=== PATIENT | female | born 1950 | race Caucasian/White ===

== ENCOUNTER 2023-03-09 12:12 | Outpatient (OUT) | payer MEDICARE, SELFPAY ==
--- NOTE | 2023-03-09 13:25 | CA_ITS ---
[facility] Test Date: 2023-03-09 Pat Name: CHERISE PAL Department: Room: - Gender: Female Clinical Practitioner: : 1950 Requested By: CHELSEA MORSE Order Number: [id number] Reading MD: MANDY REID Interpretive Statements Biphasic doppler waveforms PVR waveforms with normal upstroke, amplitude and dicrotic notch Impression: - normal arterial evaluation of the lower extremities without hemodynamic impairment of the B/L lower extremities at rest (right REBEKAH 1.13, left REBEKAH 1.11) - abnormal response to excercise in the RLE, clinical correlation advised Electronically Signed On 03-09-2023 20:05:40 EST by MANDY REID
== END 2023-03-09 12:13 | disposition home or self-care (01) ==
LOC: CARD 12:15
PROVIDERS: PCP Family Medicine; Visit Provider Family Medicine
DX: I73.9 Peripheral vascular disease, unspecified (principal)
CPT/HCPCS: 93924

== ENCOUNTER 2023-08-26 07:19 | Outpatient (OUT) | payer MEDICARE, SELFPAY ==
--- NOTE | 2023-08-26 07:00 | CA_ITS ---
Patient Name: CHERISE PAL MR#: [id number] : 1950 Exam Date: 08/26/2023 Ordering Doctor: DR CHELSEA MORSE M.D. ECHOCARDIOGRAM REPORT PROCEDURE: CA ECHO DOPPLER COMPLETE INDICATIONS: Pre op, Abnormal EKG COMPARISON: None. DESCRIPTION: COMPLETE ECHOCARDIOGRAM Real-time transthoracic echocardiography with 2D, M-mode, spectral and color flow Doppler performed. QUALITY: Technical quality was good. LEFT VENTRICLE: Normal chamber size. Borderline left ventricular hypertrophy. Global left ventricular systolic function is normal. LV EF: Visual estimation of left ventricular ejection fraction is 65-70% DIASTOLIC: Normal diastolic function. ATRIAL SEPTUM: LEFT ATRIUM: Normal chamber size. RIGHT ATRIUM: Normal chamber size. RIGHT VENTRICLE: Normal chamber size. Normal right ventricular systolic function. TRICUSPID VALVE: Normal mobility and thickness. No stenosis with mild regurgitation. No evidence of pulmonary hypertension. RVSP 29 mmHg. MITRAL VALVE: Normal mobility and thickness. No evidence of mitral valve stenosis. There is no mitral annular calcification. Trivial mitral regurgitation. AORTIC VALVE: Normal trileaflet appearance. No visible sclerosis. Normal leaflet mobility. No evidence of aortic valve stenosis. No aortic regurgitation. AORTIC ROOT: Normal diameter and appearance. Mildly dilated ascending aorta measuring 3.7 cm. PULMONIC VALVE: Normal thickness and mobility. No stenosis. Trivial regurgitation. PERICARDIUM: No evidence of pericardial effusion. IVC: Collapses with inspirations. Normal size. PLEURA: CONCLUSION: 1. Normal left ventricular size and systolic function. LVEF is 65 to 70%. 2. Normal right ventricular size and systolic function. 3. No significant valvular dysfunction. 4. Normal right-sided pressures. 5. Mildly dilated ascending aorta. Adult Echocardiography Procedure Report Left Ventricle LVEDD (3.7 - 5.6 cm): 4.32 cm LVESD (2.2 - 4.0 cm): 3.11 cm LVIVS thickness (0.6 - 1.2 cm): 1.13 cm LVPW thickness (0.5 - 1.0 cm): 0.90 cm e': 0.09 m/s E - e': 7.20 LVOT Max Gradient: 1.89 mm[Hg] LVOT Area (cm2): 0.69 m/s Peak Velocity (LVOT): 0.69 m/s Mean Velocity (LVOT): 0.54 m/s LVOT Diameter 2.20 cm Left Ventricular Ejection Fraction: 65-70 % Left Atrium LA Volume Index (2D A2C): 18.50 ml/m2 Left Atrium Systolic Dimension: 2.49 cm Mitral Valve MV E to A Ratio: 0.96 Mitral Valve A-Wave Peak Velocity: 0.69 m/s Mitral Valve E-Wave Peak Velocity: 0.66 m/s Right Ventricle RV Internal Diastolic Dimension: 3.24 cm Aorta AO Root Diam: 3.19 cm Ascending Ao Diam: 3.65 cm Aortic Valve AoV Area (Peak Eliud): 2.24 cm2, 2.24 cm2 AoV Area (VTI): 2.49 cm2, 2.49 cm2 Peak Velocity(Antegrade Flow): 1.16 m/s Peak Gradient(Antegrade Flow): 5.42 mm[Hg] Mean Velocity(Antegrade Flow): 0.79 m/s Mean Gradient(Antegrade Flow): 2.89 mm[Hg] Velocity Time Integral: 26.81 cm Tricuspid Valve Peak Velocity (Regurgitant Flow): 2.17 m/s, 2.20 m/s, 2.55 m/s Pulmonic Valve Mean Gradient: 2.01 mm[Hg], 1.80 mm[Hg] Mean Velocity: 0.67 m/s, 0.62 m/s Peak Velocity: 0.95 m/s Peak Gradient: 3.47 mm[Hg], 3.81 mm[Hg] Right Atrium Right Atrium Systolic Pressure: 45.43 ml, 45.43 ml Dictated by: Shahzad Medina M.D. on 08/26/2023 at 19:50 Approved by: Shahzad Medina M.D. on 08/26/2023 at 19:53
--- OUTSIDE RECORDS SUMMARY | 2023-08-26 07:21 | XMS_ITS | CCD ---
Author Organization [facility] Care Team Providers Care Director Visual Name Role Phone LITO, DR TRAN Primary Care Unavailable SHAIKH Gerald TITUS Admitting Unavailable SHAIKH Gerald TITUS Attending Unavailable ERWIN ., DR WILIAN Guallpa Consulting Unavailable JOHN AGUILAR Consulting Unavailable YELENA STYLES Consulting Unavailable SHAIKH Gerald TITUS Consulting Unavailable LITO, DR TRAN Admitting Unavailable LITO, DR TRAN Attending Unavailable LITO, DR TRAN Primary Care Unavailable LITO, DR TRAN Consulting Unavailable LITO, DR TRAN Admitting Unavailable LITO, DR TRAN Attending Unavailable LITO, DR TRAN Primary Care Unavailable LITO, DR TRAN Consulting Unavailable MD Lynda Morse Primary Care Provider MD Suman Sosa Attending Provider [phone] Suman Sosa Attending Unavailable Suman Sosa Admitting Unavailable Lynda Morse Primary Care Unavailable Lynda Morse MD Primary Care Provider [phone] LYNDA MORSE Primary Care Unavailable Krysta Oviedo Attending Unavail able Krysta Oviedo Admitting Unavail able Krysta Oviedo Attending Unavail able Krysta Oviedo Admitting Unavail able LYNDA MORSE Primary Care Unavailable LYNDA MORSE Attending Unavailable LYNDA MORSE Attending Unavailable LYNDA MORSE Attending Unavailable GHAZAL GALINDO Attending Unavailable GHAZAL GALINDO Referring Unavailable KRYSTA OVIEDO Attending Unavailable KRYSTA OVIEDO Attending Unavailable LYNDA MORSE Attending Unavailable LYNDA MORSE Attending Unavailable Allergies Allergy Classification Reported Allergen(s) Allergy Type Date of Onset Reaction(s) Facility (2 sources) Penicillins Drug allergy (disorder) 06-15-[address] [facility] Repository (1 source) Penicillins Drug allergy (disorder) 09-04-2022 [facility] Repository (3 sources) Penicillins Drug Allergy 10-13-2022 [facility] (1 source) Penicillin; Translations: [penicillin] Drug Allergy [facility] Repository Medications Current Medications Medication Drug Class(es) Dates Sig (Normalized) Sig (Original) Blood Glucose Monitoring Suppl (ONE TOUCH ULTRA 2) w/Device kit (3 sources) Start: 04-15-2022 Blood Glucose Monitoring Suppl (ONE TOUCH ULTRA 2) w/Device kit USE DIRECTED 0 04/15/2022 Active cilostazol 100 mg oral tablet (3 sources) Phosphodiesterase 3 Inhibitor Start: 03-10-2023 End: 03-09-2024 take 1 tablet by mouth in the morning cilostazol (Pletal) 100 MG tablet Indications: Intermittent claudication (CMS/HCC) Take 1 tablet (100 mg) by mouth in the morning. 90 tablet 3 03/10/2023 03/09/2024 Active citalopram 40 mg oral tablet (3 sources) Serotonin Reuptake Inhibitor Start: 01-14-2023 take 1 tablet by mouth once daily citalopram (CeleXA) 40 MG tablet TAKE 1 TABLET BY MOUTH EVERY DAY FOR 100 DAYS 0 01/14/2023 Active fluticasone propionate 0.05 mg/actuat metered dose nasal spray (3 sources) Corticosteroid Start: 02-19-2023 take 2 spray(s) nasal route once daily fluticasone (Flonase) 50 MCG/ACT nasal spray Indications: Seasonal allergies USE 2 SPRAYS IN EACH NOSTRIL ONCE EVERYDAY 48 mL 3 02/19/2023 Active Fluticasone-Umeclid in-Vilant (Trelegy Ellipta) 200-62.5-25 MCG/ACT aerosol powder (3 sources) Start: 04-29-2022 Fluticasone-Umecl idin-Vilant (Trelegy Ellipta) 200-62.5-25 MCG/ACT aerosol powder 1 puff 1 (one) time each day at the same time. 0 04/29/2022 Active gabapentin 800 mg oral tablet (3 sources) Anti-epileptic Agent Start: 08-12-2022 take 1 tablet by mouth four times daily gabapentin (Neurontin) 800 MG tablet Indications: Restless legs syndrome TAKE 1 TABLET BY MOUTH FOUR TIMES A DAY 360 tablet 3 08/12/2022 Active linaclotide 0.145 mg oral capsule (3 sources) Guanylate Cyclase-C Agonist Linzess 145 MCG capsule 1 capsule 1 (one) time each day at the same time. 0 Active lisinopril 2.5 mg oral tablet (3 sources) Angiotensin Converting Enzyme Inhibitor Start: 01-19-2023 End: 04-29-2023 take 1 tablet by mouth in the morning lisinopril 2.5 MG tablet Indications: Elevated blood sugar Take 1 tablet (2.5 mg) by mouth in the morning. 100 tablet 3 01/19/2023 04/29/2023 Active metFORMIN hydrochloride 500 mg oral tablet (3 sources) Biguanide Start: 01-19-2023 End: 04-29-2023 take 1 tablet by mouth at mealtime metFORMIN (Glucophage) 500 MG tablet Indications: Elevated blood sugar Take 1 tablet (500 mg) by mouth in the morning. Take with meals. 100 tablet 3 01/19/2023 04/29/2023 Active metoprolol tartrate 50 mg oral tablet (3 sources) beta-Adrenergic Lorena Start: 04-29-2022 metoprolol tartrate (Lopressor) 50 MG tablet every 12 (twelve) hours. 0 04/29/2022 Active rOPINIRole 0.25 mg oral tablet (3 sources) Nonergot Dopamine Agonist rOPINIRole (Requip) 0.25 MG tablet 1 (one) time each day at the same time. 0 Active semaglutide 7 mg oral tablet (5 sources) Start: 03-26-2023 End: 04-25-2023 take 1 tablet by mouth before mealtime semaglutide (Rybelsus) 7 MG tablet Indications: Elevated blood sugar Take 1 tablet (7 mg) by mouth in the morning. Take before meals. 30 tablet 0 03/26/2023 04/25/2023 Active Start: 02-12-2023 End: 06-12-2023 take 1 tablet by mouth before mealtime semaglutide (Rybelsus) 3 MG tablet Indications: Elevated blood sugar Take 1 tablet (3 mg) by mouth in the morning. Take before meals. 30 tablet 3 02/12/2023 03/26/2023 Discontinued (Reorder) simvastatin 40 mg oral tablet (3 sources) HMG-CoA Reductase Inhibitor simvastatin (Zocor) 40 MG tablet 1 (one) time each day at the same time. 0 Active traMADol hydrochloride 50 mg oral tablet (3 sources) Opioid Agonist Start: 4 take 1 tablet by mouth every six hours for pain traMADol (Ultram) 50 MG tablet Indications: Degenerative lumbar spinal stenosis Take 1 tablet (50 mg) by mouth every 6 (six) hours if needed for severe pain 72 tablet 0 03/09/2023 Active traZODone hydrochloride 50 mg oral tablet (3 sources) Serotonin Reuptake Inhibitor Start: 3 take 1-2 tablets by mouth once daily at bedtime traZODone (Desyrel) 50 MG tablet Indications: Insomnia, unspecified type TAKE 1 - 2 TABLETS BY MOUTH EVERYDAY AT BEDTIME 180 tablet 3 08/12/2022 Active Problems Active Problems Problem Classification Problem Date Documented Da te Episodic/Chronic Asthma (7 sources) Unspecified asthma, uncomplicated; Translations: [Asthma] Onset: 06-28-2021 07-21-2022 Chronic Cardiac dysrhythmias (5 sources) Tachycardia, unspecified; Translations: [TACHYCARDIA UNSPECIFIED] Onset: 05-03-2021 Episodic Chronic obstructive pulmonary disease and bronchiectasis (3 sources) Chronic obstructive lung disease; Translations: [Chronic obstructive pulmonary disease, unspecified] Onset: 07-21-2022 07-21-2022 Chronic Diabetes mellitus with complications (4 sources) Type 2 diabetes mellitus with peripheral angiopathy; Translations: [Type 2 diabetes mellitus with diabetic peripheral angiopathy without gangrene] Onset: 03-26-2023 03-26-2023 Chronic Diabetes mellitus without complication (4 sources) Type 2 diabetes mellitus without complication; Translations: [Type 2 diabetes mellitus without complications] Onset: 03-26-2023 03-26-2023 Chronic Diabetes mellitus without complication (5 sources) Hyperglycemia; Translations: [Hyperglycemia, unspecified] Onset: 07-21-2022 07-21-2022 Episodic Disorders of lipid metabolism (4 sources) Hyperlipidemia, unspecified; Translations: [Pure hypercholesterolemia ] Onset: 06-28-2021 07-21-2022 Chronic Diverticulosis and diverticulitis (6 sources) Diverticular disease; Translations: [Diverticulosis of intestine, part unspecified, without perforation or abscess without bleeding] Onset: 09-13-2015 07-21-2022 Chronic Essential hypertension (4 sources) Essential (primary) hypertension; Translations: [Essential hypertension] Onset: 06-28-2021 07-21-2022 Chronic Malaise and fatigue (3 sources) Chronic fatigue syndrome; Translations: [Chronic fatigue syndrome] Onset: 07-21-2022 07-21-2022 Chronic Menopausal disorders (3 sources) Primary ovarian failure; Translations: [Other primary ovarian failure] Onset: 07-21-2022 07-21-2022 Chronic Mood disorders (3 sources) Recurrent major depressive episodes, moderate ; Translations: [Major depressive disorder, recurrent, moderate] Onset: 07-21-2022 07-21-2022 Chronic Osteoarthritis (16 sources) Unspecified osteoarthritis, unspecified site; Translations: [Degenerative joint disease involving multiple joints] Onset: 04-30-2015 07-21-2022 Chronic Other hereditary and degenerative nervous system conditions (1 source) Restless legs syndrome; Translations: [RESTLESS LEGS SYNDROME] Onset: 06-28-2021 Chronic Other hereditary and degenerative nervous system conditions (3 sources) Restless legs; Translations: [Restless legs syndrome] Onset: 07-21-2022 07-21-2022 Chronic Other nervous system disorders (1 source) Other chronic pain; Translations: [OTHER CHRONIC PAIN] Onset: 06-28-2021 Chronic Other non-traumatic joint disorders (3 sources) Derangement of left shoulder joint; Translations: [Other specific joint derangements of left shoulder, not elsewhere classified] Onset: 07-21-2022 07-21-2022 Chronic Other non-traumatic joint disorders (5 sources) Pain in right hip joint; Translations: [Pain in right hip] Onset: 12-21-2015 10-14-2022 Episodic Other nutritional; endocrine; and metabolic disorders (3 sources) Obese class I; Translations: [Obesity, unspecified] Onset: 07-21-2022 07-21-2022 Chronic Other skin disorders (3 sources) H/O: skin disorder; Translations: [Personal history of diseases of the skin and subcutaneous tissue] Onset: 01-19-2023 01-19-2023 Episodic Other upper respiratory disease (3 sources) Allergic rhinitis; Translations: [Allergic rhinitis, unspecified] Onset: 07-21-2022 07-21-2022 Chronic Other upper respiratory disease (3 sources) Seasonal allergy; Translations: [Other seasonal allergic rhinitis] Onset: 07-21-2022 07-21-2022 Chronic Peripheral and visceral atherosclerosis (5 sources) Intermittent claudication; Translations: [Peripheral vascular disease, unspecified] Onset: 02-12-2023 02-12-2023 Chronic Spondylosis; intervertebral disc disorders; other back problems (3 sources) Degeneration of cervical intervertebral disc; Translations: [Other cervical disc degeneration, unspecified cervical region] Onset: 07-21-2022 07-21-2022 Chronic Spondylosis; intervertebral disc disorders; other back problems (7 sources) Degenerative lumbar spinal stenosis; Translations: [Spinal stenosis, lumbar region without neurogenic claudication] Onset: 07-21-2022 07-21-2022 Episodic Unclassified (1 source) LOW BACK PAIN, UNSPECIFIED; Translations: [LOW BACK PAIN, UNSPECIFIED] Onset: 06-28-2021 Unclassified (1 source) CONTACT W/AND (SUSP) EXPOS COVID-19; Translations: [CONTACT W/AND (SUSP) EXPOS COVID-19] Onset: 06-28-2021 Unclassified (1 source) Encounter for screening for malignant neoplasm of colon; Translations: [Encounter for screening for malignant neoplasm of colon] Onset: 09-04-2022 Past or Other Problems Problem Classification Problem Date Documented Da te Episodic/Chronic Conditions associated with dizziness or vertigo (4 sources) Dizziness and giddiness; Translations: [Benign paroxysmal vertigo, unspecified ear] Onset: 06-26-2021 Episodic Other acquired deformities (3 sources) Spondylolisthesis, grade 4; Translations: [Spondylolisthesis , site unspecified] Onset: 07-21-2022 07-21-2022 Episodic Other aftercare (1 source) Other intermodal truck driver (current) drug therapy; Translations: [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] Onset: 06-28-2021 Episodic Other bone disease and musculoskeletal deformities (6 sources) Osteopenia; Translations: [Other specified disorders of bone density and structure, unspecified site] Onset: 07-21-2022 07-21-2022 Episodic Other connective tissue disease (1 source) Fibromyalgia; Translations: [FIBROMYALGIA] Onset: 06-28-2021 Episodic Other connective tissue disease (3 sources) Osteophyte of bone; Translations: [Other shoulder lesions, unspecified shoulder] Onset: 07-21-2022 07-21-2022 Episodic Other connective tissue disease (3 sources) Fibromyalgia; Translations: [Fibromyalgia] Onset: 07-21-2022 07-21-2022 Episodic Other ear and sense organ disorders (3 sources) Tinnitus; Translations: [Tinnitus, unspecified ear] Onset: 07-21-2022 07-21-2022 Episodic Other gastrointestinal disorders (3 sources) Constipation; Translations: [Constipation, unspecified] Onset: 07-21-2022 07-21-2022 Episodic Other lower respiratory disease (4 sources) Shortness of breath; Translations: [SHORTNESS OF BREATH] Onset: 04-30-2021 Episodic Other screening for suspected conditions (not mental disorders or infectious disease) (3 sources) Blood chemistry abnormal; Translations: [Other specified abnormal findings of blood chemistry] Onset: 07-21-2022 07-21-2022 Episodic Residual codes; unclassified (3 sources) Insomnia; Translations: [Insomnia, unspecified] Onset: 07-21-2022 07-21-2022 Episodic Screening and history of mental health and substance abuse codes (1 source) Personal history of nicotine dependence; Translations: [PERSONAL HISTORY OF NICOTINE DEPEND] Onset: 06-28-2021 Episodic Results Test Name Value Interpretation Reference Range Facility Progress Note - Nurseon Progress Note - Nurse Dr James reviews pt chart and wants cardiac clearance. Terra at Dr Oviedo's was notified of this. [Electronically Signed on: 08/17/2023 13:44 EDT] Ernie Alanis RN [Verified on: 08/17/2023 13:44 EDT] Ernie Alanis RN [facility] Provider Orderson 08-14-2023 Provider Orders [id number] Normal [facility] C MRSA Screenon 08-13-2023 C MRSA Screen Negative Normal [facility] Comment on above: Performed By: #### 1 [id number] #### [facility] (DEFAULT) [address] [place] [address]407 .Auto Diff 1on 08-12-2023 Auto Brown % 9 % Normal 1-12 [facility] Comment on above: Performed By: #### 1 [id number], [id number], [id number] #### [facility] (DEFAULT) [address] [place] [address] 52046 Baso Abs# 0.1 x10 Normal 0.0-0.2 [facility] Comment on above: Performed By: #### 1 [id number], [id number], [id number] #### [facility] (DEFAULT) [address] [place] [address] 32946 Basophils/100 WBC (Bld) 1.4 % Normal 0.2-2.0 [facility] Comment on above: Performed By: #### 1 [id number], [id number], [id number] #### [facility] (DEFAULT) [address] [place] [address] 35016 Eos Abs# 0.2 x10 Normal 0.0-0.4 [facility] Comment on above: Performed By: #### 1 [id number], [id number], [id number] #### [facility] (DEFAULT) [address] [place] [address] 76121 Eosinophils/100 WBC (Bld) 4.4 % High 0.9-4.0 [facility] Comment on above: Performed By: #### 1 [id number], [id number], [id number] #### [facility] (DEFAULT) [address] [place] [address] 04813 Lymph Abs# 1.4 x10 Normal 1.3-2.9 [facility] Comment on above: Performed By: #### 1 [id number], [id number], [id number] #### [facility] (DEFAULT) [address] [place] [address] 61409 Lymphocytes/100 WBC (Bld) 31 % Normal 14-48 [facility] Comment on above: Performed By: #### 1 [id number], [id number], [id number] #### [facility] (DEFAULT) [address] [place] [address] 99711 Brown Abs# 0.4 x10 Normal 0.0-0.8 [facility] Comment on above: Performed By: #### 1 [id number], [id number], [id number] #### [facility] (DEFAULT) [address] [place] [address] Neut Abs# 2.4 x10 Normal 1.5-9.2 [facility] Comment on above: Performed By: #### 1 [id number], [id number], [id number] #### [facility] (DEFAULT) [address] [place] [address] 36366 Neutrophils/100 WBC (Bld) 54 % Normal 44-88 [facility] Comment on above: Performed By: #### 1 [id number], [id number], [id number] #### [facility] (DEFAULT) [address] [place] [address] 20920 BMP Standardon 08-12-2023 eGFR Non AA 50 mL/min/1.73m2 Invalid Interpretation Code [facility] Comment on above: Performed By: #### 1 [id number], [id number], [id number] #### [facility] (DEFAULT) [address] [place] [address] 32085 eGFR AA 60 mL/min/1.73m2 Invalid Interpretation Code [facility] Comment on above: Performed By: #### 1 [id number], [id number], [id number] #### [facility] (DEFAULT) [address] [place] [address] 35177 Anion gap [Moles/Vol] 11.4 mmol/L Normal 5.0-19.0 [facility] Comment on above: Performed By: #### 1 [id number], [id number], [id number] #### [facility] (DEFAULT) [address] [place] [address] 44711 Calcium [Mass/Vol] 9.2 mg/dL Normal 8.9-10.3 [facility] Comment on above: Performed By: #### 1 [id number], [id number], [id number] #### [facility] (DEFAULT) [address] [place] [address] 06002 Chloride [Moles/Vol] 104 mmol/L Normal 101-111 [facility] Comment on above: Performed By: #### 1 [id number], [id number], [id number] #### [facility] (DEFAULT) [address] [place] [address] 57683 CO2 [Moles/Vol] 27 mmol/L Normal 21-32 [facility] Comment on above: Performed By: #### 1 [id number], [id number], [id number] #### [facility] (DEFAULT) [address] [place] [address] 70381 Creatinine [Mass/Vol] 1.09 mg/dL Normal 0.60-1.30 [facility] Comment on above: Performed By: #### 1 [id number], [id number], [id number] #### [facility] (DEFAULT) [address] [place] [address] 64387 Glucose [Mass/Vol] 110.0 mg/dL Normal 74.0-118.0 [facility] Comment on above: Performed By: #### 1 [id number], [id number], [id number] #### [facility] (DEFAULT) [address] [place] [address] 30434 Osmolality 276 mOsm/L Invalid Interpretation Code [facility] Comment on above: Performed By: #### 1 [id number], [id number], [id number] #### [facility] (DEFAULT) [address] [place] [address] 23150 Potassium [Moles/Vol] 4.4 mmol/L Normal 3.6-5.1 [facility] Comment on above: Performed By: #### 1 [id number], [id number], [id number] #### [facility] (DEFAULT) [address] [place] [address] 53636 Sodium [Moles/Vol] 138.0 mmol/L Normal 136.0-144.0 [facility] Comment on above: Performed By: #### 1 [id number], [id number], [id number] #### [facility] (DEFAULT) [address] [place] [address] 44614 Urea nitrogen [Mass/Vol] 12 mg/dL Normal 8-26 [facility] Comment on above: Performed By: #### 1 [id number], [id number], [id number] #### [facility] (DEFAULT) [address] [place] [address] 14893 Urea nitrogen/Creatini ne [Mass ratio] 11.0 mg/mg Normal 4.6-16.2 [facility] Comment on above: Performed By: #### 1 [id number], [id number], [id number] #### [facility] (DEFAULT) [address] [place] [address] CBC w/ Auto Diffon 4 Erythrocyte distribution width (RBC) [Ratio] 15.5 % High 11.5-15.0 [facility] Comment on above: Performed By: #### 1 [id number], [id number], [id number] #### [facility] (DEFAULT) [address] [place] [address] Hematocrit (Bld) [Volume fraction] 38.9 % Normal 33.7-40.4 [facility] Comment on above: Performed By: #### 1 [id number], [id number], [id number] #### [facility] (DEFAULT) [address] [place] [address] 70287 Hemoglobin (Bld) [Mass/Vol] 12.9 g/dL Normal 11.3-15.9 [facility] Comment on above: Performed By: #### 1 [id number], [id number], [id number] #### [facility] (DEFAULT) [address] [place] [address] 94819 Man Diff? Auto Invalid Interpretation Code [facility] Comment on above: Performed By: #### 1 [id number], [id number], [id number] #### [facility] (DEFAULT) [address] [place] [address] 10386 MCH (RBC) [Entitic mass] 29 pg Normal 24-34 [facility] Comment on above: Performed By: #### 1 [id number], [id number], [id number] #### [facility] (DEFAULT) [address] [place] [address] MCHC (RBC) [Mass/Vol] 33 g/dL Normal 26-37 [facility] Comment on above: Performed By: #### 1 [id number], [id number], [id number] #### [facility] (DEFAULT) [address] [place] [address] MCV (RBC) [Entitic vol] 88 fL Normal 81-100 [facility] Comment on above: Performed By: #### 1 [id number], [id number], [id number] #### [facility] (DEFAULT) [address] [place] [address] Platelet 333 x10 Normal 138-427 [facility] Comment on above: Performed By: #### 1 [id number], [id number], [id number] #### [facility] (DEFAULT) [address] [place] [address] Platelet mean volume (Bld) [Entitic vol] 7.6 fL Normal 6.3-10.2 [facility] Comment on above: Performed By: #### 1 [id number], [id number], [id number] #### [facility] (DEFAULT) [address] [place] [address] RBC 4.44 x10 Normal 3.70-5.30 [facility] Comment on above: Performed By: #### 1 [id number], [id number], [id number] #### [facility] (DEFAULT) [address] [place] [address] WBC 4.4 x10 Normal 3.5-10.5 [facility] Comment on above: Performed By: #### 1 [id number], [id number], [id number] #### [facility] (DEFAULT) [address] [place] [address] UA w Culture if Ind Standard on 08-12-2023 Breakpoint UA Normal [facility] Comment on above: Performed By: #### 1 [id number] #### [facility] (DEFAULT) [address] [place] [address] Color (U) Yellow Normal [facility] Comment on above: Performed By: #### 1 [id number] #### [facility] (DEFAULT) [address] [place] [address] 07270 Culture? Not Indicated Invalid Interpretation Code [facility] Comment on above: Result Comment: Resu lt created by rule GL_MAGR_ADD_UA_[id number] Performed By: #### 1 [id number] #### [facility] (DEFAULT) [address] [place] [address] Glucose (U) [Mass/Vol] Negative Normal [facility] Comment on above: Performed By: #### 1 [id number] #### [facility] (DEFAULT) [address] [place] [address] Ketones Ql (U) Negative [facility] Comment on above: Performed By: #### 1 [id number] #### [facility] (DEFAULT) [address] [place] [address] 20700 Micro? Not Indicated Invalid Interpretation Code [facility] Comment on above: Result Comment: Resu lt created by rule GL_MAGR_ADD_UA_MICRO Performed By: #### 1 [id number] #### [facility] (DEFAULT) [address] [place] [address] UA Bilirubin Negative Normal [facility] Comment on above: Performed By: #### 1 [id number] #### [facility] (DEFAULT) [address] [place] [address] 23626 UA Blood Negative Normal NEGATIVE [facility] Comment on above: Performed By: #### 1 [id number] #### [facility] (DEFAULT) [address] [place] [address] 64273 UA Clarity CLEAR Normal CLEAR [facility] Comment on above: Performed By: #### 1 [id number] #### [facility] (DEFAULT) [address] [place] [address] 63920 UA Leuk Est Negative Normal NEGATIVE [facility] Comment on above: Performed By: #### 1 [id number] #### [facility] (DEFAULT) [address] [place] [address] 49333 UA Nitrite Negative Normal NEGATIVE [facility] Comment on above: Performed By: #### 1 [id number] #### [facility] (DEFAULT) [address] [place] [address] UA pH 6.0 Normal 5-8 [facility] Comment on above: Performed By: #### 1 [id number] #### [facility] (DEFAULT) [address] [place] [address] UA Protein Negative Normal NEGATIVE [facility] Comment on above: Performed By: #### 1 [id number] #### [facility] (DEFAULT) [address] [place] [address] UA Spec Grav >=1.030 Normal 1.001-1.035 [facility] Comment on above: Performed By: #### 1 [id number] #### [facility] (DEFAULT) [address] [place] [address] UA Urobilinogen 1.0 mg/dL Normal 0.2-1.0 [facility] Comment on above: Performed By: #### 1 [id number] #### [facility] (DEFAULT) [address] [place] [address] Urine Source Clean Catch Normal [facility] Comment on above: Performed By: #### 1 [id number] #### [facility] (DEFAULT) [address] [place] [address] Robby 09-04-2022 L - -------- Specimen: [id number] Received: 09/04/22 Status: [place] Chinchilla Num: [id number] Spec Type: Surgical Subm Dr: Suman Sosa MD Tissues: A Colon Biopsy (CECAL POLYP) Procedures: HE/2, Gross/Micro L4 -------- Age/ Patient Sex Location Account Attending Physician -------- Mercedez Zhong 72/F [id number] Suman Sosa MD -------- SPEC NUM: [id number] RECD: 09/04/22-1009 STATUS: [place] CHINCHILLA NUM: [id number] NILSA: 09/04/22- SUBM DR: Suman Sosa MD ENTERED: 09/04/22-1010 [facility] DR: LORETA TYPE: Surgical DEPT: S ORDERED: HE/2, Gross/Micro L4 ORDERED: HE/2, Gross/Micro L4 Pathological Diagnosis Cecum, polyp, biopsy: - Fragments of tubular adenoma(s) Clinical Information Screening Gross Description Received in formalin labeled with the patient's name, date of and cecal polyp are multiple taylor tissues end fecal material measuring 2.5 x 0.8 x 0.3 cm in aggregate. Entirely submitted in one cassette labeled A1. Microscopic Description Two H E slides reviewed. The microscopic examination confirms the diagnosis. CPT Codes 38145 -------- -------- Specimen: [id number] Received: 09/04/22 Status: [place] Promatilda Num: [id number] Spec Type: Surgical Subm Dr: Suman Sosa MD Tissues: A Colon Biopsy (CECAL POLYP) Procedures: ZACKARY/Yinka Michaud/La L4 -------- Patient: Mercedez Zhong [id number] (Continued) -------- Signed (signature on file) Juan C Morse MD 09/08/22 1522 [facility] MRI Shoulder w/o Lefton 03-13 MRI Shoulder w/o Left HISTORY: Remote history of rotator cuff surgery. Chronic lateral pain radiating down the arm. TECHNIQUE: Routine non-contrast MRI of the shoulder , left side COMPARISON: Radiographs 04/02/2022. RESULT: Some limitations from artifact from the prior hardware. Rotator Cuff Tendons: Changes from prior rotator cuff repair. Mild to moderate tendinosis involving supraspinatus, infraspinatus, and subscapularis, without evidence for tear. Teres minor appears intact. Long Head Biceps Tendon: Intra-articular portion not well-visualized, which may relate to tear or prior surgery. Muscle: Muscle bulk and signal intensity are within normal limits. Labrum: Diffuse fraying/tearing. Bones and Marrow: No evidence of fracture or bone marrow replacing process. Glenohumeral Joint: Osteophytes with at least moderate areas of chondral loss, including multiple joint bodies, especially within the subcoracoid region measuring up to 9 mm. Acromioclavicular Joint: Mild to moderate degenerative changes. Other: No other significant abnormality. IMPRESSION: Rotator cuff tendinosis with changes from prior rotator cuff repair, without evidence for tear. Glenohumeral osteoarthritis with multiple joint bodies. Report reported and signed by Germán Cook on 04/08/2022 1540 Normal [facility] SCREENING MAMMOGRAM W/ARIADNA, BILATERAL*on 07-16-2021 SCREENING MAMMOGRAM W/ARIADNA, BILATERAL* COMPARISON: Dating back to June 11, 2020 and January 17, 2019. TECHNIQUE: 2D and 3D Tomosynthesis of the right and left breasts was performed. FINDINGS: Breast composition demonstrates scattered fibroglandular densities. Overall appearance is stable. Left upper outer quadrant biopsy clip. No suspicious microcalcifications, dominant mass lesions, or distortion is present. IMPRESSION: CATEGORY 2- Benign Mammogram Board Certified Radiologist. Accredited by the ACR and FDA. MAMMOGRAPHY IS VERY IMPORTANT TO YOUR HEALTH. THE CURRENT [place] [employer] AND [employer] GUIDELINES RECOMMENDS ANNUAL MAMMOGRAPHY BEGINNING AT AGE 40 THIS FACILITY USES A REMINDER SYSTEM TO ENSURE ALL PATIENTS RECEIVE REMINDER NOTIFICATIONS AT THE APPROPRIATE TIME BASED ON THE RECOMMENDATIONS OF THIS EXAM. Report reported and signed by Fernando Early on 07/16/2021 1213 Normal [facility] CBC AUTO DIFFon 06-26-2021 BASO # 0.1 103/ul Normal 0.0-0.[address] [facility] Comment on above: Performed By: #### C BC #### [facility] [address] [place] [address] Dr. Landon Izquierdo Basophils/100 WBC (Bld) 0.7 % Normal 0.2-2.0 [facility] Comment on above: Performed By: #### C BC #### [facility] [address] [place] [address] Dr. Landon Izquierdo EO # 0.0 103/ul Normal 0.0-0.[address] [facility] Comment on above: Performed By: #### C BC #### [facility] [address] [place] [address] Dr. Landon Izquierdo Eosinophils/100 WBC (Bld) 0.5 % Critically low 0.9-7.0 [facility] Comment on above: Performed By: #### C BC #### [facility] [address] [place] [address] Dr. Landon Izquierdo Erythrocyte distribution width (RBC) [Ratio] 13.2 % Normal 11.0-15.0 [facility] Comment on above: Performed By: #### C BC #### [facility] [address] [place] [address] Dr. Landon Izquierdo Hematocrit (Bld) [Volume fraction] 34.4 % Critically low 36.0-48.0 [facility] Comment on above: Performed By: #### C BC #### [facility] [address] [place] [address] Dr. Landon Izquierdo Hemoglobin (Bld) [Mass/Vol] 11.1 g/dL Critically low 12.0-16.0 [facility] Comment on above: Performed By: #### C BC #### [facility] [address] [place] [address] Dr. Landon Izquierdo IG # 0.03 10e3/ul Normal 0.00-0.03 [facility] Comment on above: Performed By: #### C BC #### [facility] [address] [place] [address] Dr. Landon Izquierdo IG % 0.4 % Normal 0.0-0.5 [facility] Comment on above: Performed By: #### C BC #### [facility] [address] [address] [address] Landon Izquierdo LYMPH # 0.8 103/ul Critically low 1.2-3.[address] [facility] Comment on above: Performed By: #### C BC #### [facility] [address] [address] [address] Landon Izquierdo Lymphocytes/100 WBC (Bld) 11.1 % Critically low 20.5-60.0 [facility] Comment on above: Performed By: #### C BC #### [facility] [address] [place] [address] Dr. Landon Izquierdo MANUAL DIFF REQ NO Normal [facility] Comment on above: Performed By: #### C BC #### [facility] [address] [place] [address] Dr. Landon Izquierdo MCH (RBC) [Entitic mass] 29.2 pg Normal 26.7-34.0 [facility] Comment on above: Performed By: #### C BC #### [facility] [address] [place] [address] Dr. Landon Izquierdo MCHC (RBC) [Mass/Vol] 32.3 g/dL Normal 29.9-35.[address] [facility] Comment on above: Performed By: #### C BC #### [facility] [address] [place] [address] Dr. Landon Izquierdo MCV (RBC) [Entitic vol] 90.5 fL Normal 81.0-99.[address] [facility] Comment on above: Performed By: #### C BC #### [facility] [address] [place] [address] Dr. Landon Izquierdo MONO # 0.4 103/ul Normal 0.3-0.[address] [facility] Comment on above: Performed By: #### C BC #### [facility] [address] [place] [address] Dr. Landon Izquierdo Monocytes/100 WBC (Bld) 5.2 % Normal 1.7-12.0 [facility] Comment on above: Performed By: #### C BC #### [facility] [address] [address] [address] Landon Izquierdo NEUT # 6.1 103/ul Normal 1.4-6.[address] [facility] Comment on above: Performed By: #### C BC #### [facility] [address] [place], [place] [id number] Dr. Landon Izquierdo Neutrophils/100 WBC (Bld) 82.1 % Critically high 43.0-75.[address] [facility] Comment on above: Performed By: #### C BC #### [facility] [address] [place] [address] Dr. Landon Izquierdo Platelet mean volume (Bld) [Entitic vol] 8.8 fL Critically low 9.5-13.[address] [facility] Comment on above: Performed By: #### C BC #### [facility] [address] [place] [address] Dr. Landon Izquierdo PLT 326 103/ul Normal 150-[address] [facility] Comment on above: Performed By: #### C BC #### [facility] [address] [place] [address] Dr. Landon Izquierdo RBC 3.80 106/ul Critically low 4.20-5.40 The [facility] Comment on above: Performed By: #### C BC #### [facility] [address] [place] [address] Dr. Landon Izquierdo WBC 7.5 103/ul Normal 4.0-11.[address] [facility] Comment on above: Performed By: #### C BC #### [facility] [address] [place] [address] HEAD WO CONon 06-26-2021 CT HEAD WO CON EXAM: CT HEAD WO CON INDICATION: Dizziness. COMPARISON: No prior study available. CT of the sinuses dated 12/25/2017 is available for correlation. TECHNIQUE: CT of the head without intravenous contrast. Dose reduction techniques were achieved by using automated exposure control and/or adjustment of mA and/or kV according to patient size and/or use of iterative reconstruction technique. FINDINGS: There is no evidence of acute intracranial hemorrhage, extra-axial collection, mass effect, midline shift, herniation or hydrocephalus. The ventricles, sulci and cisterns are age appropriate. The ball-white differentiation is intact. Very subtle lacunar infarct over perivascular space on image 17 series 5 in the right basal ganglia, and a similar probable perivascular space on image 17 series 5 in the left basal ganglia. No geographic low attenuation identified in a major vascular territory. The visualized paranasal sinuses and mastoid air cells are clear. The surrounding soft tissues and osseous structures are unremarkable. Calcification noted on image 27 series 5 in the soft tissues overlying the left frontal calvarium and scattered calcifications elsewhere may represent vascular or dermal calcifications. IMPRESSION: No evidence of acute intracranial hemorrhage, extra-axial collection, mass effect or hydrocephalus. Age-appropriate appearance of the brain parenchyma with no acute intracranial pathology or significant paranasal sinus disease. No findings of otomastoiditis. It should be noted that acute infarct, demyelinating processes, hypoxic injury, or other pathology may not immediately be seen on CT imaging. Recommend MRI for further evaluation if clinically indicated. Electronically authenticated by: YELENA STYLES Date: 2021-06-25 23:55 Normal [facility] Covid-19 PCR ([facility])on 06-09 SARS-CoV-2 (COVID-19) RNA LILIAN+probe Ql (Unsp spec) Not detected Normal NOT DETECTED [facility] Comment on above: Result Comment: When diagnostic testing is negative, the possibility of a false negative should be considered in the context of a patient's recent exposures and the presence of clinical signs and symptoms consistent with SARS-CoV-2. This test is not yet approved or cleared by the [place] FDA. When there are no FDA-approved or cleared tests available, and other criteria are met, FDA can make tests available under an emergency access mechanism called an Emergency Use Authorization (EUA). The EUA for this test is supported by the [place] of Health and Human Service's declaration that circumstances exist to justify the emergency use of in vitro diagnostics for the detection and/or diagnosis of the virus that causes COVID-19. This EUA will remain in effect for the duration of the COVID-19 declaration justifying emergency of IVDs, unless it is terminated or revoked by the FDA (after which the test may no longer be used). Performed By: #### C [facility] #### [facility] [address] [place] [address] Dr. Yilan Izquierdo PROF CHEM 8 (BAS METB)on Anion gap [Moles/Vol] 10.8 mmol/L Normal [facility] Comment on above: Performed By: #### B MP #### [facility] [address] [place] [address] Dr. Landon Izquierdo Calcium [Mass/Vol] 8.4 mg/dL Critically low 8.5-10.[address] [facility] Comment on above: Performed By: #### B MP #### [facility] [address] [address] [address] Landon Izquierdo Chloride [Moles/Vol] 102 mmol/L Normal 98-[address] [facility] Comment on above: Performed By: #### B MP #### [facility] [address] [place] [address] Dr. Landon Izquierdo CO2 [Moles/Vol] 29.0 mmol/L Normal 21.0-32.0 [facility] Comment on above: Performed By: #### B MP #### [facility] [address] [place] [address] Dr. Landon Izquierdo Creatinine [Mass/Vol] 0.85 mg/dL Normal 0.55-1.[address] [facility] Comment on above: Performed By: #### B MP #### [facility] [address] [place] [address] Dr. Landon Izquierdo EGFR-AF [place] >60 Normal >=60 [facility] Comment on above: Performed By: #### B MP #### [facility] [address] [address] [address] Landon Izquierdo EGFR-NON AF [place] >60 Normal >=[address] [facility] Comment on above: Performed By: #### B MP #### [facility] [address] [address] [address] Landon Izquierdo Glucose [Mass/Vol] 144 mg/dL Critically high 74-[address] [facility] Comment on above: Performed By: #### B MP #### [facility] [address] [address] [address] Landon Izquierdo Potassium [Moles/Vol] 3.8 mmol/L Normal 3.5-5.1 [facility] Comment on above: Performed By: #### B MP #### [facility] [address] [address] [address] Landon Izquierdo Sodium [Moles/Vol] 138 mmol/L Normal 136-145 [facility] Comment on above: Performed By: #### B MP #### [facility] [address] [address] [address] Landon Izquierdo Urea nitrogen [Mass/Vol] 12.0 mg/dL Normal 7.0-18.0 [facility] Comment on above: Performed By: #### B MP #### [facility] [address] [place] [address] Dr. Landon Izquierdo Urea nitrogen/Creatini ne [Mass ratio] 14.1 mg/mg Normal [facility] Comment on above: Performed By: #### B MP #### [facility] [address] [place] [address] Dr. Landon Izquierdo XR Bone Density (DEXA)on XR Bone Density (DEXA) EXAM: LEFT FOREARM BONE DENSITY FINDINGS: RegionBMDYoung-AdultA ge-Matched Total(g/cm2)(%)T-Scor e(%)Z-Score One-Third0.95635 -1.8102 0.2 Impression: The mean BMD and corresponding T-score indicated above indicate Low Bone Mass (Osteopenia) and places the patient at a mild to moderate increased risk for fracture. There may be a future risk of developing osteoporosis. Comment: The T-score is the primary focus of the interpretation of a patient???s bone mineral density measurement. The T-score is the number of standard deviations an individual is above or below the mean value for a young female having normal bone mass. The WHO defines osteoporosis based on the T-score value??? +1.0 to ???0.9 : Normal bone mass -1.0 to -2.5 : Osteopenia and thus may be at future risk of fracture -2.6 to ???5 : Osteoporosis and ???at significantly increased risk of fracture??? A Z-Score of -2.0 or lower is defined as ???below the expected range for age??? and a Z-Score above -2.0 is ???within the expected range for age.??? Osteoporosis cannot be diagnosed in men under the age of 50 on the basis of BMD alone. Per 2019 ISCD guidelines, Z-Scores (not T-Scores) are preferred when reporting data in premenopausal females and males less than 50 years of age. EXAM: RIGHT FOREARM BONE DENSITY FINDINGS: RegionBMDYoung-AdultA ge-Matched Total(g/cm2)(%)T-Scor e(%)Z-Score One-Third0.56644 -1.6104 0.4 Impression: The mean BMD and corresponding T-score indicated above indicate Low Bone Mass (Osteopenia) and places the patient at a mild to moderate increased risk for fracture. There may be a future risk of developing osteoporosis. Comment: The T-score is the primary focus of the interpretation of a patient???s bone mineral density measurement. The T-score is the number of standard deviations an individual is above or below the mean value for a young female having normal bone mass. The WHO defines osteoporosis based on the T-score value??? +1.0 to ???0.9 : Normal bone mass -1.0 to -2.5 : Osteopenia and thus may be at future risk of fracture -2.6 to ???5 : Osteoporosis and ???at significantly increased risk of fracture??? A Z-Score of -2.0 or lower is defined as ???below the expected range for age??? and a Z-Score above -2.0 is ???within the expected range for age.??? Osteoporosis cannot be diagnosed in men under the age of 50 on the basis of BMD alone. Per 2019 ISCD guidelines, Z-Scores (not T-Scores) are preferred when reporting data in premenopausal females and males less than 50 years of age. Report reported and signed by Fernando Early on 05/27/2021 1455 Normal [facility] [facility] Hemoglobin A1Con 05-23-2021 EAG 134.11 Normal [facility] [facility] Comment on above: Performed By: #### A 1C #### [facility] [address] [place], [place] [id number] HbA1c (Bld) [Mass fraction] 6.3 % High 4.0-6.0 [facility] Comment on above: Performed By: #### A 1C #### [facility] [address] [place], [place] [id number] Lipid Panelon 05-23-2021 Cholesterol [Mass/Vol] 175 mg/dL Normal 125-200 [facility] Comment on above: Result Comment: Low risk < 200mg/dL Borderline risk 201-239 mg/dl High risk > or equal to 240 Performed By: #### L IPD, VITD #### [facility] [address] [place], [place] [id number] Cholesterol in HDL [Mass/Vol] 53 mg/dL Normal >40 [facility] Comment on above: Result Comment: High Cardiovascular Risk HDL <40 mg/dL Low Cardiovascular Risk HDL > or equal to 60 mg/dl Performed By: #### L IPD, VITD #### [facility] [address] [place], [place] [id number] Cholesterol in LDL [Mass/Vol] 106 mg/dL Normal [facility] Special[facility] Comment on above: Result Comment: LDL ATP III CLASSIFICATION LDL less than 100 mg/dl Optimal LDL 100-129 mg/dl Near or above optimal LDL 130-159 Borderline high LDL 160-189 High LDL greater than 189 mg/dl Very High Performed By: #### L IPD, VITD #### [facility] [address] [place], [place] [id number] Cholesterol in VLDL [Mass/Vol] 16 mg/dL Normal [facility] Special[facility] Comment on above: Performed By: #### L IPD, VITD #### [facility] [address] [place], [place] [id number] Cholesterol.total /Cholesterol in HDL [Mass ratio] 3 {ratio} Normal [facility] Special[facility] Comment on above: Performed By: #### L IPD, VITD #### [facility] [address] [place], [place] [id number] Triglyceride [Mass/Vol] 80 mg/dL Normal 30-150 [facility] Special[facility] Comment on above: Result Comment: TRIG ATPIII CLASSIFICATIONS TRIG less than 150 mg/dl Normal TRIG 150-199 mg/dl Borderline High TRIG 200-500 mg/dl High TRIG greather than 500 mg/dl Very High Performed By: #### L IPD, VITD #### [facility] [address] [place], [place] [id number] Vitamin D 25-OHon 05-23-2021 VIT D 25 OH 29 ng/ml Low >29 [facility] [facility] Comment on above: Result Comment: Sofi min D Status Deficiency <20 ng/mL Insufficiency 20-29 ng/mL Optimal 30-100 ng/mL Possible Toxicity >=150 ng/mL Performed By: #### L IPD, VITD #### [facility] [address] [place], [place] [id number] ECHOCARDIO M/2D COMPLETEon 0 04-30-2021 ECHOCARDIO M/2D COMPLETE Patient: MERCEDEZ ZHONG Exam Date: 04/30/2021 : 1950 Gender:F Ordering : DR LYNDA MORSE M.D. Admission #: [id number] Family : Order #: [id number] CLICK HERE TO VIEW EXAM ECHOCARDIOGRAM REPORT PROCEDURE: CARDIO PULMONARY ECHOCARDIO M/2D COMP INDICATIONS: Shortness of breath, tachycardia, h/o Covid (02/2021) COMPARISON: None. DESCRIPTION: COMPLETE ECHOCARDIOGRAM Real-time transthoracic echocardiography with 2D, M-mode, spectral and color flow Doppler performed. QUALITY: Technically difficult due to patient's condition. LEFT VENTRICLE: Normal chamber size. Normal wall thickness. Global left ventricular systolic function is normal. LV EF: Normal left ventricular ejection fraction, (>55%). DIASTOLIC: Normal diastolic function. ATRIAL SEPTUM: LEFT ATRIUM: Normal chamber size. RIGHT ATRIUM: Normal chamber size. RIGHT VENTRICLE: Normal chamber size. Normal right ventricular systolic function. TRICUSPID VALVE: Normal mobility and thickness. No stenosis with trivial regurgitation. No evidence of pulmonary hypertension. RVSP 31 mmHg MITRAL VALVE: Normal mobility and thickness. No evidence of mitral valve stenosis. There is no mitral annular calcification. No mitral regurgitation. AORTIC VALVE: Normal trileaflet appearance. No visible sclerosis. Normal leaflet mobility. No evidence of aortic valve stenosis. No aortic regurgitation. AORTIC ROOT: Normal diameter and appearance. Normal ascending aorta (3.54 cm). PULMONIC VALVE: Not well visualized. No stenosis. No regurgitation. PERICARDIUM: No evidence of pericardial effusion. IVC: Collapses with inspirations. PLEURA: CONCLUSION: 1. Normal ventricular function, LVEF is 55-60%. 2. No significant valvular dysfunction. 3. Normal right sided pressures. 4. No pericardial effusion. Adult Echocardiography Procedure Report Left Ventricle LVEDD (3.7 - 5.6 cm): 4.33 cm LVESD (2.2 - 4.0 cm): 3.04 cm LVIVS thickness (0.6 - 1.2 cm): 1.09 cm LVPW thickness (0.5 - 1.0 cm): 1.07 cm e': 4.83 cm/s E - e': 9.60 LVOT Area (cm2): 4.15 cm2 LVOT Diameter 2.30 cm Left Ventricular Ejection Fraction: 57.10 % Left Atrium LA Volume Index (2D A2C): 16.90 ml/m2 Left Atrium Systolic Dimension: 3.20 cm Left Atrium Systolic Area(A2C): 14.50 cm2 Left Atrium Systolic Volume(A2C): 24070 mm3 Mitral Valve MV E to A Ratio: 0.60 Mitral Valve A-Wave Peak Velocity: 75.50 cm/s Mitral Valve E-Wave Peak Velocity: 46.40 cm/s Deceleration Time: 193 ms Right Ventricle Aorta AO Root Diam: 3.20 cm Aortic Valve AoV Area (Peak Eliud): 2.75 cm2 Peak Velocity(Antegrade Flow): 108.00 cm/s Peak Gradient(Antegrade Flow): 5 mm[Hg] Tricuspid Valve Pulmonic Valve Peak Velocity: 87.30 cm/s Peak Gradient: 3 mm[Hg] Right Atrium Dictated by: Shahzad Medina M.D. on 04/30/2021 at 18:41 Approved by: Shahzad Medina M.D. on 04/30/2021 at 18:44 Normal [facility] Vital Signs Date Time Vital Sign Value Performing Clinician Facility 03-26-2023 13:32-0500 Body mass index (BMI) [Ratio] 35.29 kg/m2 Lynda Morse MD Work Phone: [facility] 03-26-2023 13:32-0500 Body weight 108.41 kg Lynda Morse MD Work Phone: [facility] 03-26-2023 13:32-0500 Diastolic blood pressure 88 mm[Hg] Lynda Morse MD Work Phone: [facility] 03-26-2023 13:32-0500 Heart rate 85 /min Lynda Morse MD Work Phone: [facility] 03-26-2023 13:32-0500 SaO2% (BldA) [Mass fraction] 96 % Lynda Morse MD Work Phone: [facility] 03-26-2023 13:32-0500 Systolic blood pressure 138 mm[Hg] Lynda Morse MD Work Phone: [facility] 09-04-2022 09:46-0400 Diastolic blood pressure 66 mm[Hg] MD Lynda Morse Work Phone: [facility] 09-04-2022 09:46-0400 Heart rate 60 /min MD Lynda Morse Work Phone: [facility] 09-04-2022 09:46-0400 Respiratory rate 14 /min MD Lynda Morse Work Phone: [facility] 09-04-2022 09:46-0400 SaO2% (BldA) [Mass fraction] 96 % MD Lynda Morse Work Phone: [facility] 09-04-2022 09:46-0400 Systolic blood pressure 138 mm[Hg] MD Lynda Morse Work Phone: [facility] 09-04-2022 07:56-0400 Body height 177.8 cm MD Lynda Morse Work Phone: [facility] 09-04-2022 07:56-0400 Body temperature 98.7 [degF] MD Lynda Morse Work Phone: [facility] 09-04-2022 07:56-0400 Body weight 101.15 kg MD Lynda Morse Work Phone: [facility] Encounters Encounter Date Encounter Type Care Provider Facility Start: 08-17-2023 End: 08-17-2023 ambulatory RUGEN M LITO Not Available Start: 08-12-2023 End: 08-12-2023 ambulatory RUGEN M LITO Facility:[facility] Start: 08-11-2023 End: 08-11-2023 ambulatory KRYSTA Sofie REINA Not Available Start: 06-02-2023 End: 06-02-2023 ambulatory KRYSTA OVIEDO Not Available Start: 04-21-2023 End: 04-21-2023 ambulatory GHAZAL GALINOD Not Available Start: 04-20-2023 End: 04-20-2023 ambulatory LYNDA MORSE Not Available Start: 03-26-2023 End: 03-26-2023 Office outpatient visit 25 minutes Lynda Morse MD Work Phone: [facility] Comment on above: Right hip pain (Prim julio Dx); Elevated blood sugar; Type 2 diabetes mellitus without complication, without long-term current use of insulin (CMS/HCC); Type 2 diabetes mellitus with diabetic peripheral angiopathy without gangrene, without long-term current use of insulin (CMS/HCC); Peripheral vascular disease, unspecified (I73.9); Cervical radiculopathy Start: 03-26-2023 End: 03-26-2023 ambulatory LYNDA MORSE Not Available Start: 03-25-2023 Chart abstracting Lynda Morse MD Work Phone: [facility] Start: 02-12-2023 End: 02-12-2023 ambulatory LYNDA MORES Not Available Start: 01-19-2023 End: 01-19-2023 ambulatory LYNDA MORSE Not Available Start: 09-04-2022 End: 09-04-2022 ambulatory Suman Sosa Facility:[facility] Start: 09-04-2022 End: 09-04-2022 Admission to same day surgery center MD Lynda Morse Work Phone: [facility] Work Phone: Start: 09-04-2022 End: 09-04-2022 ambulatory MD Lynda Morse Work Phone: [facility] Work Phone: Start: 04-14-2022 End: 04-15-[address] LYNDA MORSE Facility: Start: 06-26-2021 End: 06-26-[address] LYNDA MORSE Facility:[facility] Start: 04-30-2021 End: 05-01-[address] LYNDA MORSE Facility:[facility] Procedures Date Procedure Procedure Detail Performing Clinician Start: 11-13-2022 Mammography Lynda Morse MD Work Phone: Start: 09-04-2022 Screening colonoscopy Arlet Morse Work Phone: Start: 09-04-2022 Colonoscopy Lynda Morse MD Work Phone: Plan of Treatment Date Care Activity Detail Author Start: 09-04-2032 Screening for malign ant neoplasm of colon [facility] Start: 01-24-2024 Urine screening for protein Diabetes: Urine Protein Screening [facility] Start: 11-14-2023 Screening for malign ant neoplasm of breast Mammogram [facility] Start: 08-09-2023 Influenza vaccination Influenza Vacc ine (#1) [facility] Comment on above: Postponed from 10/10 (Other Patient Reasons) Start: 06-28-2023 Medicare Annual Wellness (AWV) Medicare Annual Wellness (AWV) [facility] Start: 06-23-2023 End: 06-23-2023 Patient encounter procedure 06/23/2023 1:00 PM EDT Office Visit [facility] [address] [facility] [address] [place] [address] Lynda Morse MD [address] [facility] [address] [place] [address] [facility] Start: 04-20-2023 Hemoglobin A1c measurement Diabetes: Hemoglobin A1C [facility] Start: 04-20-2023 End: 04-20-2023 Patient encounter procedure 04/20/2023 2:00 PM EDT Office Visit [facility] [address] [place] [address] Lynda Morse MD [address] [place] [address] [facility] Start: 03-26-2023 End: 03-26-2023 Patient encounter procedure 03/26/2023 1:30 PM EST Office Visit [facility] [address] [facility] [address] [place] [id number] Lynda Morse MD [address] [facility] [address] [place] [address] [facility] Start: 09-04-2022 [facility] Start: 1960 Glaucoma screening Diabetes: R etinopathy Screening [facility] Start: 1950 Screening for malign ant neoplasm of colon [facility] Patient Education Colon polyps Hemorrhoids (DC) [facility] Work Phone: Immunizations Immunization Date Immunization Notes Care Provider Fa cility 07-17-2022 zoster vaccine recombinant R judson Morse MD Work Phone: [facility] 06-26-2021 Moderna SARS-CoV-2 Vaccination Lynda Morse MD Work Phone: [facility] 12-07-2018 Influenza, injectabl e, Madin [place] Canine Kidney, quadrivalent with preservative Lynda Morse MD Work Phone: [facility] 12-07-2018 influenza, injectabl e, madin alyssa canine kidney, preservative free Lynda Morse MD Work Phone: [facility] 12-07-2018 pneumococcal polysaccharide vaccine, 23 valent Lynda Morse MD Work Phone: [facility] 12-07-2018 influenza virus vacc ine, unspecified formulation Lynda Morse MD Work Phone: [facility] 11-10-2017 influenza, high dose seasonal, preservative-free Lynda Morse MD Work Phone: [facility] 11-10-2017 Influenza, High-dose Seasonal, Quadrivalent, Preservative Free Lynda Morse MD Work Phone: [facility] 11-10-2017 pneumococcal conjuga te vaccine, 13 valent Lynda Morse MD Work Phone: [facility] 11-10-2017 seasonal influenza, intradermal, preservative free Lynda Morse MD Work Phone: [facility] 06-15-2015 tetanus toxoid, redu jarred diphtheria toxoid, and acellular pertussis vaccine, adsorbed Lynda Morse MD Work Phone: [facility] 11-15-2014 influenza, seasonal, injectable, preservative free Lynda Morse MD Work Phone: [facility] 10-10-2014 seasonal influenza, intradermal, preservative free Lynda Morse MD Work Phone: [facility] 04-07-2013 zoster vaccine, live Lynda briseno MD Work Phone: [facility] 03-28-2013 influenza, seasonal, injectable Lynda Morse MD Work Phone: [facility] 10-13-2008 seasonal influenza, intradermal, preservative free Lynda Morse MD Work Phone: [facility] Payers Date Payer Category Payer Medicare [id number] 2022 Private Health Insurance [id number] 2022 Self-pay [id number] 1957 Medicare [id number] 1950 Unknown [id number] 1950 Unknown [id number] 1952 Unknown [id number] 1950 Unknown [id number] 1950 Unknown [id number] [id number] 1952 Unknown [id number] [id number] 9 1952 Unknown [id number] 2.16.840.1.758799.3.579.2.125 9 1952 Unknown [id number] 2.16.840.1.175612.3.579.2.125 9 1952 Unknown [id number] [id number] 9 1952 Unknown [id number] [id number] 9 1952 Unknown [id number] [id number] 9 1952 Unknown [id number] [id number] 9 1952 Unknown [id number] 2.16.840.1.261750.3.579.2.125 9 1952 Unknown [id number] [id number] 9 Medicaid Medicaid [id number] Unknown HCAP/HFA/FAP Active [id number] Unknown [id number] Social History Date Type Detail Facility Start: 09-04-2022 End: 10-13-2022 Tobacco smoking status MTIS Never smoked tobacco (finding) [facility] Start: 1950 Sex Assigned At Female [facility] Start: 10-13-2022 Tobacco use and exposure Smokeless tobacco non-user [facility] Start: 02-12-2023 End: 03-26-2023 Alcohol intake Ex-drinker (finding) [facility] Start: 08-12-2022 End: 02-12-2023 History of Social function [facility] Start: 08-12-2022 End: 02-12-2023 Tobacco use panel [facility] Start: 11-22-2022 Alcohol Comment caffeine: coffee [facility] Start: 1950 Sex Assigned At Not on file [facility] Medical Equipment Procedure Code Equipment Code Equipment Origin al Text Equipment Identifier Dates USE 1 LANCET ONC E A DAY DIRECTED *E11.9* [id number] Start: 04-15-2022 USE 1 STRIP ONCE A DAY DIRECTED *E11.9* [id number] Start: 04-15-2022 End: 03-26-2023 USE 1 STRIP ONCE A DAY DIRECTED *E11.9* [id number] Start: 03-26-2023 Goals Date Patient Goal Desired Activity /State History of Present illness Narrative 03-26-2023 Lynda Morse MD - 03/26/2023 1:52 PM Wilbert Morse MD - 03/26/2023 1:50 PM Wilbert Morse MD - 03/26/2023 1:49 PM Wilbert Morse MD - 03/26/2023 1:30 PM EST Note Date & Type Note Facility 03-26-2023 History of Presen t illness Narrative Associated Problem(s): Cervical radiculopathy Neck Traction Having current symptoms of pain down both arms Last Surgery 2005 and had 4 of them Associated Problem(s): Type 2 diabetes mellitus with diabetic peripheral angiopathy without gangrene, without long-term current use of insulin ([facility]) Has Pletal encourage exercise Associated Problem(s): Type 2 diabetes mellitus without complication, without long-term current use of insulin (CMS/HCC) Will increase to 7 mg and eventually 14 mg Subjective Patient ID: Mercedez Zhong is a 72 y.o. female who presents for Results (2 week follow up ). Pt has started taking new medication, she is not able to walk Pt BP today was 144/88 but states she is in pain with her shoulders and arms No toes turning blue Not walking but hips hurt No side effects Current Outpatient Medications on File Prior to Visit Medication Sig Dispense Refill traMADol (Ultram) 50 MG tablet Take 1 tablet (50 mg) by mouth every 6 (six) hours if needed for severe pain 72 tablet 0 Blood Glucose Monitoring Suppl (ONE TOUCH ULTRA 2) w/Device kit USE DIRECTED cilostazol (Pletal) 100 MG tablet Take 1 tablet (100 mg) by mouth in the morning. 90 tablet 3 citalopram (CeleXA) 40 MG tablet TAKE 1 TABLET BY MOUTH EVERY DAY FOR 100 DAYS fluticasone (Flonase) 50 MCG/ACT nasal spray USE 2 SPRAYS IN EACH NOSTRIL ONCE EVERYDAY 48 mL 3 Vygbiciocip-Nyozljgfq-Gmdwbb (Trelegy Ellipta) 200-62.5-25 MCG/ACT aerosol powder 1 puff 1 (one) time each day at the same time. gabapentin (Neurontin) 800 MG tablet TAKE 1 TABLET BY MOUTH FOUR TIMES A DAY (Patient taking differently: 2 (two) times a day.) 360 tablet 3 Lancets (Progeny SolarTouch Delica Plus Kqcetw30Q) [facility] USE 1 LANCET ONCE A DAY DIRECTED *E11.9* Linzess 145 MCG capsule 1 capsule 1 (one) time each day at the same time. lisinopril 2.5 MG tablet Take 1 tablet (2.5 mg) by mouth in the morning. 100 tablet 3 metFORMIN (Glucophage) 500 MG tablet Take 1 tablet (500 mg) by mouth in the morning. Take with meals. 100 tablet 3 metoprolol tartrate (Lopressor) 50 MG tablet every 12 (twelve) hours. rOPINIRole (Requip) 0.25 MG tablet 1 (one) time each day at the same time. simvastatin (Zocor) 40 MG tablet 1 (one) time each day at the same time. traZODone (Desyrel) 50 MG tablet TAKE 1 - 2 TABLETS BY MOUTH EVERYDAY AT BEDTIME 180 tablet 3 [DISCONTINUED] Progeny SolarTouch Ultra test strip USE 1 STRIP ONCE A DAY DIRECTED *E11.9* [DISCONTINUED] semaglutide (Rybelsus) 3 MG tablet Take 1 tablet (3 mg) by mouth in the morning. Take before meals. 30 tablet 3 No current facility-administered medications on file prior to visit. Allergies Allergen Reactions Penicillins Other Reaction(s): Unknown Social History Tobacco Use Smoking status: Never Smokeless tobacco: Never Substance Use Topics Alcohol use: Not Currently Comment: caffeine: coffee Family History Problem Relation Name Age of Onset Heart disease Mother Cancer Father Diabetes Sister Past Medical History: Diagnosis Date Anxiety Asthma (CMS/HCC) Bunion, right foot Carpal tunnel syndrome of left wrist Chest pain CTS (carpal tunnel syndrome) 2008 DDD (degenerative disc disease), cervical Depression (CMS/HCC) Diverticulitis Diverticulosis Fibromyalgia Ganglion cyst osteophyte rt thumb Hip fracture (CMS/HCC) left History of CT scan of head 06/25/2021 No evidence of ICH, extra-axial collection, mass affect or hydrocephalus. No findings of Otamastoiditis History of echocardiogram 05/06/2021 Echo Normal LV function is 55-60%, no significant valvular Dysfunction, Normal right sided pressure, No pericardial effusion History of stress test 12/28/2017 normal Hx of degenerative disc disease DDD, spondylolisthesis, spondylosis Moderate Hypokinesis inferior septal wall. Ef 59% No reversible ischemia. EKG Non Diagnostic due to EKG abnormalities. 04/11/2021 Multiple closed pelvic fractures without disruption of pelvic [place] (CMS/HCC) Osteoarthritis c3-7 Pneumonia 2013 RETROGRADE INTRAMEDULLARY SCREW FIXATION OF LEFT HIP 2013 Rotator cuff tear 2011 left Spinal cord cysts Spondylolisthesis Spondylosis Past Surgical History: Procedure Laterality Date APPENDECTOMY 1975 ARTHROSCOPY SHOULDER W/ OPEN ROTATOR CUFF REPAIR Left 2010 BUNIONECTOMY Right CARPAL TUNNEL RELEASE Left 2002 CARPAL TUNNEL RELEASE Right CERVICAL FUSION fusion;Disease:Osteoarthritis c3-7 COLONOSCOPY 2006 COLONOSCOPY W/ POLYPECTOMY 09/04/2022 DILATION AND CURETTAGE OF UTERUS 1973 FRACTURE SURGERY Retrograde IM screw fixation L sup. rami Fx/nonunion;Disease:Multiple Closed Pelvic Fx's w/out disruption of pelvic [place] GANGLION CYST EXCISION 2007 Excision of cyst and spur;Disease:Ganglion cyst, osteophyte Rt thumb HAND SURGERY 01/06/2018 Soft tissue excision left wrist and left little finger Dr. Oviedo NECK SURGERY 2005 Cervical medial branch blocks/ neck surgery x 4;Disease:DDD cervical OTHER SURGICAL HISTORY surgical removal and diskectomy;Disease:spinal cord cyst OTHER SURGICAL HISTORY 2004 PLIF;Disease:DDD, spondylolisthesis, spondylosis OTHER SURGICAL HISTORY Right 07/25/2020 IM femoral nail TUBAL LIGATION Bilateral 1975 ULTRASOUND 2012 carotid artery US Visit Vitals BP 138/88 Pulse 85 Wt 239 lb SpO2 96% BMI 35.29 kg/m Smoking Status Never BSA 2.29 m Review of Systems Constitutional: Negative for chills and fever. Respiratory: Negative for cough and stridor. Cardiovascular: Negative for chest pain and palpitations. Musculoskeletal: Positive for gait problem, joint swelling and myalgias. Objective Physical Exam Constitutional: General: She is not in acute distress. Appearance: Normal appearance. HENT: Head: Normocephalic. Neck: Vascular: No carotid bruit. Cardiovascular: Rate and Rhythm: Normal rate and regular rhythm. Pulmonary: Effort: Pulmonary effort is normal. No respiratory distress. Breath sounds: Normal breath sounds. Neurological: General: No focal deficit present. Mental Status: She is alert and oriented to person, place, and time. Psychiatric: Mood and Affect: Mood normal. Assessment/Plan Problem List Items Addressed This Visit Nervous Cervical radiculopathy Neck Traction Having current symptoms of pain down both arms Last Surgery 2005 and had 4 of them Circulatory Peripheral vascular disease, unspecified (CMS/HCC) Type 2 diabetes mellitus with diabetic peripheral angiopathy without gangrene, without long-term current use of insulin (CMS/HCC) Has Pletal encourage exercise Musculoskeletal Right hip pain - Primary Endocrine/Metabolic Type 2 diabetes mellitus without complication, without long-term current use of insulin (CMS/HCC) Will increase to 7 mg and eventually 14 mg Other Elevated blood sugar Relevant Medications glucose blood (OneTouch Ultra) test strip semaglutide (Rybelsus) 7 MG tablet Follow up in about 3 months (around 06/24/2023) for Diabetes. documented in this encounter [facility] Procedure note 09-04-2022 Note Date & Type Note Facility 09-04-2022 Procedure note [facility] Evaluation note Note Date & Type Note Facility Evaluation note No assessment information availa [facility] Work Phone: Evaluation note Note Date & Type Note Facility Evaluation note Diagnosis Right hip pain- Primary Pain in joint, pelvic region and thigh Elevated blood sugar Other abnormal glucose Type 2 diabetes mellitus without complication, without long-term current use of insulin ([facility]) Type 2 diabetes mellitus with diabetic peripheral angiopathy without gangrene, without long-term current use of insulin ([facility]) Peripheral vascular disease, unspecified (I73.9) Peripheral vascular disease, unspecified Cervical radiculopathy Brachial neuritis or radiculitis nos documented in this encounter [facility] History and physical note Note Date & Type Note Facility History and physical note Note Date/Time September 04, 2022 8:52 am [facility] [address] [place] [address] Gastroenterology H&P Signed Patient: Mercedez Zhong MR#: [id number] : 1950 Acct:[id number] Age/Sex: 72 / F Adm Date: 3 Loc: Room: Type: [facility] Attending Dr: Suman Sosa MD Copies to: MD Lynda Orozco MD~ Date of Service: 09/04/2022 HISTORY & PHYSICAL: Patient's history with special attention to the cardiovascular, pulmonary systems and the current problem was reviewed with the patient immediately prior to the procedure. Present medications and doses reviewed in the EMR. Allergies and pertinent laboratory tests were also reviewedat this time in the EMR. The physical examination, as below, was then performed. Indication, assessment and HPI: This is a 72-year-old female who presents for screening colonoscopy Family history of GI malignancy? No PHYSICAL EXAMINATION Mouth and Pharynx : Moist mucus membranes, normal dentition Cardiac: Regular rate, regular rhythm Pulmonary: Clear to auscultation bilaterally, no wheezing Neurological: Alert and oriented x3, no focal deficits noted Abdomen: Abdomen soft, non-tender REVIEW OF SYSTEMS Constitutional: Denies malaise, fevers Cardiovascular: Denies chest pain, palpitations Respiratory: Denies shortness of breath, wheezing Gastrointestinal: Per HPI Genitourinary: Denies dysuria, polyuria Musculoskeletal: Denies joint swelling, joint stiffness Neurological: Denies numbness, tingling Integumentary: Denies rashes, skin lesions Endocrine: Denies fatigue, weight loss Written informed consent obtained from the patient. Risks (including but not limited to perforation, infection, bloating, bleeding, need for emergent surgeryand loss of life), benefits and alternatives explained and questions answered. The patient verbalized understanding. Based on history patient is an appropriate candidate for the procedure. Suman Sosa MD Documented By: Suman Sosa MD 09/04/22851 Signed By: <Electronically signed by Suman Sosa MD> 09/04/22851 [facility] Work Phone: Hospital Discharge instructions Note Date & Type Note Facility Hospital Discharge instructions Additional Instructions DISCHARGE INSTRUCTIONS FOR COLONOSCOPY WHAT TO EXPECT: - You may feel full, gassy or cramping after your procedure. In some cases, this may be from a few hours to a day. Walking may help relieve the discomfort. - If you have polyp(s) removed you may note some minor bloody discharge after your first bowel movements. - You should begin to recover from anesthesia within 1 hour of the procedure, however may feel groggy for the next 24 hours. DO's AND DON'Ts: - Call your doctor right away if you have a hard abdomen, severe pain, are passing lots of bright red blood or clots. - Call your doctor if you develop any rashes, hives or difficulty breathing. - Let your doctor know if you have not had a bowel movement by 3 days after your procedure. - If you take 81 mg aspirin for your heart it is safe to resume this medication. - If you take other blood thinner medications your doctor will instruct you when these can safely be resumed. - Do NOT drive for 24 hours. - Do NOT operate machinery such as power tools, Aerospiken mowers, CFEnginewers, sewing machines, etc. for 24 hours. - Avoid alcoholic beverages and drugs for allergies, nerves, or sleep. - Do NOT stay alone. Do NOT leave your child unattended. - Do NOT make important personal or business decisions or sign any legal documents. - Eat solid foods and drink liquids in smaller amounts than usual until normal appetite returns. If you should experience an upset stomach, liquids high in sugar content (soda, Varinder-Aid, non-acid juices) are recommended. - You can resume normal activities tomorrow. FOLLOW UP & RECOMMENDATIONS: -Follow-up with the GI office as needed -Notify the doctor if you have any problems. -Dr. Sosa's office will notify you of when you need a repeat colonoscopy -Follow up with PCP. -Office number [phone]. [facility] Work Phone: Summary Purpose Family History No Family History Records FoundNo Family History Records FoundNo Family History Records FoundNo Family History Records FoundNo Family History Records Found Advance Directives No Advanced Directives Records Found Advance Directive Response Recorded Date/ Time Advance Directives No October 2:01pm Chief Complaint and Reason for Visit Chief Complaint Screening Additional Source Comments INFORMATION SOURCE (unrecogn ized section and content) DATE CREATED AUTHOR 04/10/2022 [facility] dical Specialist DATE CREATED AUTHOR AUTHOR'S ORGANIZ ATION 04/16/2022 [facility] DATE CREATED AUTHOR AUTHOR'S ORGANIZ ATION 10/06/2022 [facility] DATE CREATED AUTHOR AUTHOR'S ORGANIZ ATION 08/24/2023 [facility] DATE CREATED AUTHOR AUTHOR'S ORGANIZ ATION 08/24/2023 [facility] dical Specialists EPIC Care Teams (unrecognized sec tion and content) Team Status: Active Member Role Status Dates Lynda Morse MD Primary Care Provider Active Team Status: Inactive Member Role Status Dates Lynda Morse MD Primary Care Provider Active Suman Sosa MD Attending Provider Active Director Visual Relationship Specialty Start Date End Date Lynda Morse MD [address] [facility] [address] [place] [address] PCP - General Family Medicine 06/17/22 Director Visual Relationship Specialty Start Date End Date Lynda Morse MD [address] [facility] [address] [place] [address] PCP - General Family Medicine 06/17/22 Reason for Visit (unrecogniz ed section and content) Reason Comments Results 2 week follow up FOR RECORDS PERTAINING TO PATIENTS WHO ARE OR HAVE BEEN ENROLLED IN A CHEMICAL DEPENDENCY/SUBSTANCEABUSE PROGRAM, SOME INFORMATION MAY BE OMITTED. This clinical summary was aggregated from multiple sources. Caution should be exercised in using it in the provision of clinical care. This summary normalizes information from multiple sources, and as a consequence, information in this document may materially change the coding, format and clinical context of patient data. In addition, data may be omitted in some cases. CLINICAL DECISIONS SHOULD BE BASED ON THE PRIMARY CLINICAL RECORDS. [facility]. provides no warranty or guarantee of the accuracy or completeness of information in this document.
== END 2023-08-26 07:20 | disposition home or self-care (01) ==
LOC: CARD 07:19
PROVIDERS: PCP Family Medicine; Visit Provider Family Medicine
DX: R94.31 Abnormal electrocardiogram [ECG] [EKG] (principal); Z01.810 Encounter for preprocedural cardiovascular examination
CPT/HCPCS: 93306